=== PATIENT | female | born 1985 | race Caucasian/White ===

== ENCOUNTER 2017-01-02 10:29 | Inpatient (IN) | payer OTHER ==
[~2017-01-02] VITALS: Ht 172.7 cm; Wt 59.0 kg
--- NOTE | 2017-01-02 10:42 | NUR ---
31 YO FEMALE BIBA ON PEC. PER STRATEGIC INSIGHTS LEAD PT WAS "MISSING" FROM [place] AND WAS LOCATED TODAY IN [place]. PT ARRIVES ALERT AND AGITATED. PT STATING "I DONT WANT ANY F PILLS" "I WAS ON PAXIL AND IT MESSED ME UP" PT RAMBLING ON ABOUT VARIOUS TOPICS. PT DENIES SI/HI. DENIES ALCOHOL OR DRUG USE, STATES "I ONLY SMOKE MARIJUANA TO HELP CALM ME DOWN" PT REDIRECTABLE. AT BEDSIDE ON ARRIVAL. PT WANDED BY SECUIRTY AND CHANGED INTO HOSP SCRUBS. SITTER PRESENT.
--- NOTE | 2017-01-02 10:45 | ED PSYCHIATRIC COMPLAINT ---
History of Present Illness General Chief Complaint: Psychiatric Related Complaint Stated Complaint: BIBA FOR PSYCH EVAL Source: patient, family, EMS, police Exam Limitations: clinical condition Vital Signs & Intake/Output Vital Signs & Intake/Output Vital Signs Date Time Temp Pulse Resp B/P Pulse O2 O2 Flow FiO2 Ox Delivery Rate 01/02 1535 98.6 71 17 106/53 97 Room Air 01/02 1045 97.8 57 18 118/56 99 Room Air Allergies Coded Allergies: MDX - Amoxicillin (AMOXICILLIN) (HIVES 12/03/14) Reconcile Medications No Known Home Medications Triage Note: 31 YO FEMALE BIBA ON PEC. PER INSOLE RASPER PT WAS "MISSING" FROM [place] AND WAS LOCATED TODAY IN [place]. PT ARRIVES ALERT AND AGITATED. PT STATING "I DONT WANT ANY F PILLS" "I WAS ON PAXIL AND IT MESSED ME UP" PT RAMBLING ON ABOUT VARIOUS TOPICS. PT DENIES SI/HI. DENIES ALCOHOL OR DRUG USE, STATES "I ONLY SMOKE MARIJUANA TO HELP CALM ME DOWN" PT REDIRECTABLE. MD AT BEDSIDE ON ARRIVAL. PT WANDED BY SECUIRTY AND CHANGED INTO HOSP SCRUBS. SITTER PRESENT. Triage Nurses Notes Reviewed? yes : No Patient currently breastfeeds: No HPI: Patient brought in by EMS on a police paper. Per the police the patient had a psychotic break but then disappeared from her house in [place]. This occurred 3 days ago. Patient was found today at her [id number]'s house in [place] so the patient was brought in for evaluation. Patient is very tangential and verbally aggressive. Patient is unable to provide any history. Patient's [id number] states that the patient has been complaining her own for the past day and a half. Patient's family states that this is an acute change for the patient. Past History Travel History Traveled to [place] past 21 day No Medical History Any Pertinent Medical History? 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 No Review of Systems Review of Systems Constitutional: Reports: see HPI. EENTM: Reports: no symptoms. Respiratory: Reports: no symptoms. Cardiovascular: Reports: no symptoms. GI: Reports: no symptoms. Genitourinary: Reports: no symptoms. Musculoskeletal: Reports: no symptoms. Skin: Reports: no symptoms. Neurological/Psychological: Reports: see HPI. Hematologic/Endocrine: Reports: no symptoms. Immunologic/Allergic: Reports: no symptoms. All Other Systems: Reviewed and Negative Physical Exam Physical Exam General Appearance: well developed/nourished, alert, awake Head: atraumatic, normal appearance Eyes: Bilateral: PERRL, EOMI. Ears, Nose, Throat: normal pharynx, normal ENT inspection Neck: normal inspection, supple, full range of motion Respiratory: normal breath sounds, chest non-tender, no respiratory distress, lungs clear Cardiovascular: regular rate/rhythm, normal peripheral pulses Gastrointestinal: normal bowel sounds, soft, non-tender Extremities: normal range of motion Neurological/Psychiatric: no motor/sensory deficits, awake, agitated, alert Behavoir/Eye Contact/Speech: cooperative, normal speech Thoughts/Hallucinations: no apparent hallucination, tangental Skin: intact, normal color, warm/dry SAD PERSONS Done? CRISIS CONSULT OBTAINED Progress Differential Diagnosis: drug intoxication, drug overdose, drug withdrawal, electrolyte abnormality Plan of Care: Orders Procedure Date/time Status Admit to inpatient psych 01/02 1552 Active Continuous Observation Monitor 01/02 1044 Active URINE DRUGS OF ABUSE 01/02 1044 Complete URINALYSIS 01/02 1044 Complete HUMAN BETA HCG SCREEN 01/02 1044 Complete ETHANOL 01/02 1044 Complete COMPREHENSIVE METABOLIC PANEL 01/02 1044 Complete CBC WITHOUT DIFFERENTIAL 01/02 1044 Complete ED CRISIS PSYCH CONSULT 01/02 1044 Active Laboratory Tests 01/02/17 1115: Urine Opiates Screen < 100.00, Methadone Screen < 40, Barbiturate Screen < 60, Ur Phencyclidine Scrn < 6.00, Amphetamines Screen < 100, U Benzodiazepines Scrn < 85, Urine Cocaine Screen < 50, Urine Cannabis Screen 74.80 H, Urine Color YEL , Urine Clarity HAZY H, Urine pH 6.0, Ur Specific [place] >= 1.030, Urine Protein 30 H, Urine Ketones >=80, Urine Nitrite NEG, Urine Bilirubin NEG, Urine Urobilinogen 0.2, Ur Leukocyte Esterase NEG, Ur Microscopic SEDIMENT EXAMINED, Urine RBC 1-3, Urine WBC RARE, Ur Epithelial Cells MANY H, Urine Bacteria MANY H, Urine Mucus MANY H, Urine Hemoglobin NEG, Urine Glucose NEG 01/02/17 1112: CBC w Diff NO MAN DIFF REQ, RBC 5.58 H, MCV 87.4, MCH 29.0, RDW 14.2, MPV 9.4, Gran % 71.4, Lymphocytes % 22.4, Monocytes % 5.6, Eosinophils % 0.1, Basophils % 0.5, Absolute Granulocytes 7.8 H, Absolute Lymphocytes 2.5, Absolute Monocytes 0.6, Absolute Eosinophils 0, Absolute Basophils 0.1, PUBS MCHC 33.1 01/02/17 1111: Anion Gap 11, Estimated GFR > 60, BUN/Creatinine Ratio 20.0, Glucose 79, Calcium 10.5 H, Total Bilirubin 0.6, AST 19, ALT 33, Alkaline Phosphatase 75, Total Protein 7.8, Albumin 5.0, Globulin 2.8, Albumin/Globulin Ratio 1.8, Total Beta HCG NEGATIVE, Serum Alcohol < 10.0 Departure Departure Disposition: STILL A PATIENT Condition: Guarded Clinical Impression Primary Impression: Depression Referrals: PATIENT HAS NO PRIMARY CARE DR (PCP/Family) Departure Forms: Customer Survey General Discharge Information Prescriptions: Current Visit Scripts No Known Home Medications Psych Admission Note Psychiatric Admission: I have seen and evaluated FABIAN VENTURA. I have also reviewed all the pertinent lab results and diagnostic results. FABIAN VENTURA will be admitted to our inpatient Psychiatric unit for treatment and care.
--- NOTE | 2017-01-02 10:55 | NUR ---
HUSBANDS CONTACT INFO: EMELY [phone]
--- NOTE | 2017-01-02 11:09 | NUR ---
SECURITY WANDED PT CHANGE INTO SCRUBS 1 BELONGING BAG 1 VALUABLE BAG, GIVEN TO DIALLO MCCALL
--- NOTE | 2017-01-02 11:13 | NUR ---
BLOOD DRAWN AND SENT TO LAB. LAV,SST,BLUE
[2017-01-02 11:18] LABS: ABSOLUTE BASOPHIL COUNT 0.1 /CUMM (0.0-0.2); ABSOLUTE EOSINOPHIL COUNT 0 /CUMM (0.0-0.7); ABSOLUTE GRANULOCYTE CT 7.8 /CUMM (1.4-6.5); ABSOLUTE LYMPH COUNT 2.5 /CUMM (1.2-3.4); ABSOLUTE MONOCYTE COUNT 0.6 /CUMM (0.10-0.60); BASOPHIL % 0.5 % (0.0-2.0); EOSINOPHIL % 0.1 % (0-5); GRANULOCYTE % 71.4 % (42.2-75.2); HEMATOCRIT 48.8 % (37-47); MEAN CORPUSCULAR HGB CONC 33.1 G/DL (33.0-37.0); MEAN CORPUSCULAR VOLUME 87.4 FL (81.0-99.0); MEAN PLATELET VOLUME 9.4 FL (7.4-10.4); PLATELET COUNT 228 /CUMM (130-400); RBC DISTRIBUTION WIDTH 14.2 % (11.5-14.5); RED BLOOD CELL CT 5.58 /CUMM (4.20-5.40)
--- NOTE | 2017-01-02 11:22 | NUR ---
URINE SPECIMEN OBTAINED AND SENT TO LAB
--- NOTE | 2017-01-02 12:47 | NUR ---
PT'S CALLED FOR UPDATE. THIS RN TRANSFERRED CALL INTO CRISIS OFFICE.
--- NOTE | 2017-01-02 13:33 | NUR ---
PT MOVED FROM HUMMEL D TO ROOM 13
--- NOTE | 2017-01-02 14:55 | ED PSYCH CRISIS CONSULTATION ---
Crisis Consult Basic Assessment Date of Consult: 01/02/17 Responsible Person/Accompanied By: self Insurance Authorization: Insurance #1: Insurance name: SELF-PAY Phone number: Policy number: Group number: Authorization number: ED Provider: Patient's ED Provider: MARIA TERESA CURTIS,KT Vega Primary Care Physician: Patient's PCP: PATIENT HAS NO PRIMARY CARE DR PCP's Phone Number: Current Psychiatrist: none Chief Complaint: Psychiatric Related Complaint Patient's Quote: "Nothing here is real." Present Illness: Pt is a 31yo female who was brought in to the ED on a PEER after she went missing from her home early this morning. Pt had showed up at a friend's home at 5am this morning speaking nonsensical stating that she needs help packing all her things into the car so that she can give them away. The friend called pt's who had already contacted the police, but by the time police came to the home pt was gone. The police had to use GPS to track her down by phone. When they found pt she presented with labile mood swings and was noted to be rambling nonsensically about life and . Crisis eval was very limited as pt continued to present as labile (irritable, tearful, elated) and making statements that were not making any sense. "I love you. Nothing is real here. 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 I'm going to [place] because my sister needs my eyes." This clinician did speak with Pt's Ben Ramos . He explained that Pt's father began to have psychosis around the same age as pt . He was diagnosed as Schizoaffective Bipolar Type. He was Hospitalized at the [facility] several times, but his sx never improved. He 2 years ago of an unintentional drug over dose. Ben reports that over the past few weeks pt has started to process the loss of her father and it seem to have triggered a new onset of psychiatric sx. 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 Pt has take her christianity views to a new extreme as she barely ever sleeps and stay up all night reading the bible and talking about God and Kelvin. On at 7 am pt showed up at an old grad school friend house telling her she needed Kelvin. Additionally, pt has been smoking cigarettes non- stop with the purpose of killing her flesh so that she can go to [facility]. When her tries to help her see rationality and reminds her of the importance of being there for their 6yo daughter, pt will tell him that he is speaking of the devil. Pt was up all night last night and then left and showed up at her friend at 5am asking for help to pack her things into the car so that she could give them away and then left before the police arrived. Ben stated he tried to reach her by phone but she would not answer. He then text her telling her that he loves her and asking her to come home and she responded "Where's home?" He her the address and she never responded. However, as stated above the police found her through GPS. Pt has no prior mental health tx or hx. is aware the pt does smoke marijuana sometimes, but not around him so he is unsure how often. Pt's utox is positive for marijuana. Case reviewed with Dr. Block of Psychiatry and pt will be admitted to [facility]. Patient's Address: [address] [place] [address] Other Phone Number: Who Do You Live With? Family Family/Informants Interviewed: Allergies - Coded Allergies: MDX - Amoxicillin (AMOXICILLIN) (HIVES 12/03/14) Current Medications - No Known Home Medications Laboratory Results: Laboratory Tests 01/02/17 1115: Urine Opiates Screen < 100.00, Methadone Screen < 40, Barbiturate Screen < 60, Ur Phencyclidine Scrn < 6.00, Amphetamines Screen < 100, U Benzodiazepines Scrn < 85, Urine Cocaine Screen < 50, Urine Cannabis Screen 74.80 H, Urine Color YEL , Urine Clarity HAZY H, Urine pH 6.0, Ur Specific [place] >= 1.030, Urine Protein 30 H, Urine Ketones >=80, Urine Nitrite NEG, Urine Bilirubin NEG, Urine Urobilinogen 0.2, Ur Leukocyte Esterase NEG, Ur Microscopic SEDIMENT EXAMINED, Urine RBC 1-3, Urine WBC RARE, Ur Epithelial Cells MANY H, Urine Bacteria MANY H, Urine Mucus MANY H, Urine Hemoglobin NEG, Urine Glucose NEG 01/02/17 1112: CBC w Diff NO MAN DIFF REQ, RBC 5.58 H, MCV 87.4, MCH 29.0, RDW 14.2, MPV 9.4, Gran % 71.4, Lymphocytes % 22.4, Monocytes % 5.6, Eosinophils % 0.1, Basophils % 0.5, Absolute Granulocytes 7.8 H, Absolute Lymphocytes 2.5, Absolute Monocytes 0.6, Absolute Eosinophils 0, Absolute Basophils 0.1, PUBS MCHC 33.1 01/02/17 1111: Anion Gap 11, Estimated GFR > 60, BUN/Creatinine Ratio 20.0, Glucose 79, Calcium 10.5 H, Total Bilirubin 0.6, AST 19, ALT 33, Alkaline Phosphatase 75, Total Protein 7.8, Albumin 5.0, Globulin 2.8, Albumin/Globulin Ratio 1.8, Total Beta HCG NEGATIVE, Serum Alcohol < 10.0 Past History Past Medical History Neurological: NONE EENT: NONE Cardiovascular: NONE Respiratory: NONE Gastrointestinal: NONE Hepatic: NONE Renal: NONE Musculoskeletal: NONE Psychiatric: PTSD Endocrine: NONE Blood Disorders: NONE Cancer(s): NONE 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 Surgical History Surgical History: non-contributory Psychosocial History Strengths/Capabilities: Supportive family and anabaptism Physical Limitations (Interventions): none reported Psychiatric Treatment History Psych Treatment Psychiatric Treatment No Inpatient Treatment No Outpatient Treatment No Diagnosis by History: none Substance Use/Abuse History Drug Use/Abuse Substances Used/Abused Yes Substance Used/Abused Marijuana First Use unable to assess Last Used unable to assess How much used/taken unable to assess How often unable to assess For how long unable to assess Route of use unable to assess Substance Abuse Treatment Substance Abuse Treatment Past Substance Abuse [place] No Inpatient Treatment No Current Mental Status Mental Status Orientation: Confused Affect: Anxious, Angry, Broad, Depressed, Euphoric, Labile, Manic, Sad, Variable Speech: Evasive Neuro-vegetative: Concentration Poor, Energy Increased, Hyperactivity, Sleep Disturbance Appearance Appearance- Dress/Hygiene: well groomed, good eye contact Behaviors Thought Process: Disorganized, Flight of Ideas, Irrational, Loose Association Thought Content: Delusions, Paranoid, Catholic Memory: Impaired Insight: Poor SI/HI Risk Assessment Past Suicidal Ideation/Attempts No Current Suicidal Ideation/Att No Past Homicidal Ideation/Att: No Current Homicidal Ideation/Attempts No Degree of Intent: None Gravely Disabled: Lack of Insight, Poor Impulse Control, Poor Judgment Risk Factors: poor impulse control Lethality Ratin (mild) PTSD Checklist PTSD Done? pt unable to participate ED Management Sitter: Yes Restraints: No DSM5/PS Stressors/Medical Prob Diagnosis' (DSM 5, Stressors, Medical): F29 Unspecified Schizophrenia Spectrum and other psychotic Disorders, F12.20 Cannabis use d/o Current GAF: 15 Departure Disposition Psych Medical Clearance Date: 01/02/17 Medically Cleared at: 1400 Time Started: 1400 Time Ended: 1500 Psychiatrist Consulted: Mckayla CURTIS,Edward Date Disposition Established: 01/02/17 Time Disposition Established: 1500 Plan for Disposition - Modality: Inpatient Psychiatry Facility: [facility] Rationale for Disposition: safety and stabilization of sx Type of IP Admission: PEC Referrals PATIENT HAS NO PRIMARY CARE DR (PCP/Family)
--- NOTE | 2017-01-02 15:24 | NUR ---
CRISIS AT BEDSIDE
--- NOTE | 2017-01-02 15:35 | NUR ---
PT REQUESTED NICOTINE GUM, BUT WHEN THIS RN RETREIVED IT FROM PHARMACY AND BROUGHT IT TO PT SHE SAID "I DON'T WANT IT". GUM PLACED IN MED ROOM.
--- NOTE | 2017-01-02 15:44 | NUR ---
PT REFUSING DINNER AT THIS TIME.
--- NOTE | 2017-01-02 16:30 | NUR ---
PT GIVEN DINNER TRAY AND ENCOURAGED TO EAT. PT EATING AT THIS TIME.
--- NOTE | 2017-01-02 17:24 | IP CRISIS DIAG ASSESS PSYCH ---
Diagnostic Assessment Basic Assessment Insurance Authorization: Insurance #1: Insurance name: SELF-PAY Phone number: Policy number: [id number] Group number: Authorization number: [id number] Primary Care Physician: Patient's PCP: PATIENT HAS NO PRIMARY CARE DR PCP's Phone Number: Patient's Quote: "Nothing here is real." Present Illness: Pt is a 31yo female who was brought in to the ED on a PEER after she went missing from her home early this morning. Pt had showed up at a friend's home at 5am this morning speaking nonsensical stating that she needs help packing all her things into the car so that she can give them away. The friend called pt's who had already contacted the police, but by the time police came to the home pt was gone. The police had to use GPS to track her down by phone. When they found pt she presented with labile mood swings and was noted to be rambling nonsensically about life and . Crisis eval was very limited as pt continued to present as labile (irritable, tearful, elated) and making statements that were not making any sense. "I love you. Nothing is real here. 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 I'm going to [place] because my sister needs my eyes." This clinician did speak with Pt's Ben Ramos . He explained that Pt's father began to have psychosis around the same age as pt . He was diagnosed as Schizoaffective Bipolar Type. He was Hospitalized at the [facility] several times, but his sx never improved. He 2 years ago of an unintentional drug over dose. Ben reports that over the past few weeks pt has started to process the loss of her father and it seem to have triggered a new onset of psychiatric sx. 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 Pt has take her alevism views to a new extreme as she barely ever sleeps and stay up all night reading the bible and talking about God and Kelvin. On at 7 am pt showed up at an old grad school friend house telling her she needed Kelvin. Additionally, pt has been smoking cigarettes non- stop with the purpose of killing her flesh so that she can go to [facility]. When her tries to help her see rationality and reminds her of the importance of being there for their 6yo daughter, pt will tell him that he is speaking of the devil. Pt was up all night last night and then left and showed up at her friend at 5am asking for help to pack her things into the car so that she could give them away and then left before the police arrived. Ben stated he tried to reach her by phone but she would not answer. He then text her telling her that he loves her and asking her to come home and she responded "Where's home?" He her the address and she never responded. However, as stated above the police found her through GPS. Pt has no prior mental health tx or hx. is aware the pt does smoke marijuana sometimes, but not around him so he is unsure how often. Pt's utox is positive for marijuana. Case reviewed with Dr. Block of Psychiatry and pt will be admitted to [facility]PS. Patient's Address: [address] [place] [address] Other Phone Number: Who Do You Live With? Family Primary Language? Lao Family/Informants Interviewed: Allergies - Coded Allergies: MDX - Amoxicillin (AMOXICILLIN) (HIVES 12/03/14) Current Medications - No Known Home Medications Past History Past Surgical History Surgical History , hernia Repair Abuse/Trauma History Trauma History/Current Trauma: unable to assess Psychosocial History Strengths/Capabilities: Supportive family and protestant Physical Limitations (Interventions): none reported Psychiatric Treatment History Psych Treatment Psychiatric Treatment No Inpatient Treatment No Outpatient Treatment No Diagnosis by History: none Risk Factors: poor impulse control Substance Use/Abuse History Drug Use/Abuse minimum 12mo Hx Substances Used/Abused Yes Substance Used/Abused Marijuana First Use unable to assess Last Used unable to assess How much used/taken unable to assess How often unable to assess For how long unable to assess Route of use unable to assess Substance Abuse Treatment Substance Abuse Treatment Past Substance Abuse [place] No Inpatient Treatment No Current Mental Status Mental Status Orientation: Confused Affect: Anxious, Angry, Broad, Depressed, Euphoric, Labile, Manic, Sad, Variable Speech: Evasive Neuro-vegetative: Concentration Poor, Energy Increased, Hyperactivity, Sleep Disturbance Appearance Appearance- Dress/Hygiene: well groomed, good eye contact Behaviors Thought Process: Disorganized, Flight of Ideas, Irrational, Loose Association Thought Content: Delusions, Paranoid, Adventist Memory: Impaired Insight: Poor SI/HI Risk Assessment - Minimum 6mo History- Past Suicidal Ideation/Attempts No Current Suicidal Ideation/Att No Past Homicidal Ideation/Att: No Current Homicidal Ideation/Attempts No Degree of Intent: None Gravely Disabled: Lack of Insight, Poor Impulse Control, Poor Judgment Risk Factors: poor impulse control Lethality Ratin (mild) Needs/Init TX Plan/Goals: safety and stabilization of sx, individual group and family therapy, med eval AUDIT-C Questionnaire: AUDIT-C Questionnaire: Response Value ETOH use in the past year Never 0 # drinks typical/day Doesn't Drink 0 6 or > drinks per occasion Never 0 Total 0 DSM5/PS Stressors/Medical Prob Diagnosis' (DSM 5, Stressors, Medical): F29 Unspecified Schizophrenia Spectrum and other psychotic Disorders, F12.20 Cannabis use d/o Current GAF: 15
--- NOTE | 2017-01-02 19:29 | NUR ---
PT AMBULATORY TO RESTROOM, STEADY GAIT. SITTER AT DOOR FOR SAFETY
[2017-01-02 20:23] VITALS: BP 122/72
--- NOTE | 2017-01-02 22:00 | Admission Certification ---
Admission Certification Certification Statement - As attending physician, I certify that at the time of - admission, based on clinical presentation, severity of - symptoms, need for further diagnostic testing and - therapeutic interventions, and risk of adverse outcomes - without in-hospital treatment, in my clinical assessment, - this patient requires an acute hospital stay for a minimum - of two nights or longer. I have also considered psychsocial - factors such as support system, advanced age, financial - issues, cognitive issues, and failed out-patient treatments, - past re-admission history, safety of patient, and lack of - compliance as applicable. Specific rationale supporting this admission is: Psychosis, schizophrenia.
--- NOTE | 2017-01-02 22:02 | History & Physical ---
General Information and HPI MD Statement: I have seen and personally examined FABIAN VENTURA and documented this H&P. The patient is a 31 year old F who presented with a patient stated chief complaint of [psychotic episode]. Source of Information: patient Exam Limitations: no limitations History of Present Illness: 31 yo F with no significant medical problem is admitted to Inpatient Psychiatry for what appears to be a new onset of psychosis. Please refer to Psych H and P for full details. Patient denies any medical problems and is not on any medications on a daily basis. She is a current everyday smoker and also uses marijuana. She denies symptoms of chest pain, dyspnea, cough, fever/chills, GI or symptoms. 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 Psychosocial History Where do you live? Home Who Do You Live With? spouse Services at Home: None Primary Language: Armenian Smoking Status: Current Everyday Smoker ETOH Use: occasional use Illicit Drug Use: marijuana Functional Ability ADLs Independent: dressing, eating, toileting, bathing. Ambulation: independent IADLs Independent: housework, food prep, telephone, transportation. Review of Systems Review of Systems Constitutional: Denies: chills, fever, malaise, weakness. EENTM: Reports: no symptoms. Cardiovascular: Denies: chest pain, orthopena, palpitations, syncope. Respiratory: Denies: cough, short of breath, sputum production, wheezing. GI: Denies: abdominal pain, constipation, nausea, vomiting. Genitourinary: Denies: discharge, frequency, nocturia. Musculoskeletal: Reports: no symptoms. Neurological/Psychological: Reports: see HPI. All Other Systems: Reviewed and Negative Exam & Diagnostic Data Last 24 Hrs of Vital Signs/I&O Vital Signs Date Time Temp Pulse Resp B/P Pulse O2 O2 Flow FiO2 Ox Delivery Rate 01/02 2023 98.7 77 122/72 01/02 1939 97.8 69 17 118/68 98 Room Air 01/02 1939 98.2 72 16 114/76 94 Room Air 01/02 1535 98.6 71 17 106/53 97 Room Air 01/02 1045 97.8 57 18 118/56 99 Room Air Intake & Output 01/02 1600 01/02 0800 01/02 0000 Intake Total Output Total Balance Patient 135 lb Weight Physical Exam General Appearance Alert, Oriented X3, Cooperative, No Acute Distress Skin No Rashes, No Significant Lesion HEENT Atraumatic, PERRLA, EOMI, Mucous Membr. moist/pink Neck Supple Cardiovascular Regular Rate, Normal S1, Normal S2, No Murmurs Lungs Clear to Auscultation, Normal Air Movement Abdomen Normal Bowel Sounds, Soft, No Tenderness Neurological Exam Findings: Normal Gait, Normal Speech, Strength at 5/5 X4 Ext, Cranial Nerves 3-12 NL, Reflexes 2+ Cranial Nerves II through XII: Grossly intact. Extremities No Edema, Normal Pulses, No Tenderness/Swelling Vascular Normal Pulses, Pulses Symmetrical Last 24 Hrs of Labs/Arnulfo: Laboratory Tests 01/02/17 1115: Urine Opiates Screen < 100.00, Methadone Screen < 40, Barbiturate Screen < 60, Ur Phencyclidine Scrn < 6.00, Amphetamines Screen < 100, U Benzodiazepines Scrn < 85, Urine Cocaine Screen < 50, Urine Cannabis Screen 74.80 H, Urine Color YEL , Urine Clarity HAZY H, Urine pH 6.0, Ur Specific [place] >= 1.030, Urine Protein 30 H, Urine Ketones >=80, Urine Nitrite NEG, Urine Bilirubin NEG, Urine Urobilinogen 0.2, Ur Leukocyte Esterase NEG, Ur Microscopic SEDIMENT EXAMINED, Urine RBC 1-3, Urine WBC RARE, Ur Epithelial Cells MANY H, Urine Bacteria MANY H, Urine Mucus MANY H, Urine Hemoglobin NEG, Urine Glucose NEG 01/02/17 1112: CBC w Diff NO MAN DIFF REQ, RBC 5.58 H, MCV 87.4, MCH 29.0, RDW 14.2, MPV 9.4, Gran % 71.4, Lymphocytes % 22.4, Monocytes % 5.6, Eosinophils % 0.1, Basophils % 0.5, Absolute Granulocytes 7.8 H, Absolute Lymphocytes 2.5, Absolute Monocytes 0.6, Absolute Eosinophils 0, Absolute Basophils 0.1, PUBS MCHC 33.1 01/02/17 1111: Anion Gap 11, Estimated GFR > 60, BUN/Creatinine Ratio 20.0, Glucose 79, Calcium 10.5 H, Total Bilirubin 0.6, AST 19, ALT 33, Alkaline Phosphatase 75, Total Protein 7.8, Albumin 5.0, Globulin 2.8, Albumin/Globulin Ratio 1.8, Vitamin B12 Pending, Folate Pending, TSH Pending, Free T4 1.53, Thyroxine (T4) 10.4, Total Beta HCG NEGATIVE, Serum Alcohol < 10.0 Diagnostic Data EKG Results -- CXR Results -- Assessment/Plan Assessment: 31 yo F with no significant medical problem is admitted for new onset psychosis and possible schizophrenia. Continue management per Psych team. She has a leukocytosis and mild elevation in calcium levels (10.5), likely dehydration. She is hemeconcentrated. Encourage PO hydration. Nicotine patch, smoking cessation counseling. DVT ppx - low risk, early ambulation. As Ranked By This Provider Problem List: 1. Psychosis 2. Depression Miscellaneous Miscellaneous Documentation Attending Case Discussed With: IMMANUEL CURTIS,PRASHANTH Bell Primary Care Physician: PATIENT HAS NO PRIMARY CARE DR Patient sees these Specialists -- Level of Patient Care: DEONDRE Treviño MD Review Statement Attending Statement Attending MD Statement: examined this patient, discuss w/resident/PA/MANAGER BUSINESS CONTINUITY
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
--- NOTE | 2017-01-03 04:18 | NUR ---
SLEPT ON AND OFF THROUGH OUT NIGHT. HAD BEEN MEDICATED AT WITH ZYDIS TYLENOL.
[2017-01-03 08:13] VITALS: BP 121/74
[2017-01-03 12:12] VITALS: BP 127/58
--- NOTE | 2017-01-03 14:17 | NUR ---
PT APPEARS CONFUSED AT TIMES. SHE WAS FOUND IN ANOTHER PTS ROOM AND WHEN LETTING VISITORS OUT SHE WAS HUDDLING BY THE DOOR. PT WAS TEARFUL AND STATED THE ONLY PERSON SHE TRUSTED WAS HER MOM.PT GIVEN ZYPREXA 5MG PO PRN. WILL MONITOR EFFECT
--- NOTE | 2017-01-03 14:29 | NUR ---
PT STATED HER GOAL TODAY WAS TO "HAVE A CONSTITUTION PARTY" HER THOUGHTS ARE DISORGANIZED..AT TIMES SHE IS CONFUSED. SHE APPEARS DEPRESSED AND WAS TEARFUL WHEN HER MOM VISITED. SHE IS TAKING MEDS WITHOUT A PROBLEM AND STATED THE MEDS MADE HER FEEL A LITTLE SLEEPY. SHE DENIED ANY THOUGHTS OF SUICIDE OR SELF HARM
--- NOTE | 2017-01-03 15:16 | CPS MD/APRN INITIAL ASSE PSYCH ---
Psychiatric Admission Thumb Sewer's Note Reviewed: Yes Patient Seen and Examined: Yes Identifying Information: This is the 1st [facility] admission for a 31-year-old mother of a 6-year- old daughter currently living with her spouse and child in [facility], and to my knowledge not employed outside the home at this time. Her mother resides in [facility]; father about 2 years ago. Chief Complaint: "Nothing here is real." Reaction to Hospitalization: highly ambivalent and fearful at times but becoming less uncomfortable with active reassurance of staff History of Present Illness Onset of Illness: according to history we have at this time patient "went missing" from her home early in the morning of 01/02/2017; became very concerned and contacted the police who were able to utilize a GPS tracker (?on her cellphone) to locate her. They found patient very confused, incoherent, not making any sense and brought her into the E.D. on a PEER. In the E.D., patient verbally rambled, "I don't want any f*ckin' pills...I was on Paxil and it messed me up...I only smoke Marijuana to help me calm down; she asked for nicotine gum but when it was provided, refused to use it. Circumstances Leading to Admission: patient's apparently abrupt and unexplained disappearance/absence from her family home early on the morning of admission and the confusional state in which police found her at the time she was located Problem(s) Justifying Need for Admission: grave disability contributed to by confusion and apparent gross cognitive disorganization/disorder with significant risk to her safety (had run off and only been located by the police after they utilized GPS tracking Other HPI: patient's told chlorinator operator he thought his was during the past few weeks "only just beginning to come to terms with her father's two years ago" Past Psychiatric History Past Diagnosis(es)- if any: none known at this time Past Precipitating Factors- if any: no known history at this time - Include inpatient and outpatient treatment Treatment History: not currently aware of any prior treatment, either inpatient or outpatient History of Suicide Attempts or Gestures unknown Substance Abuse History: patient was intoxicated with cannabis at time of presentation to the E.D.; no other known drug or alcohol history Allergies: Coded Allergies: amoxicillin (HIVES 01/03/17) Home Med List: none - Include any medical condition(s) that may - impact the patient's recovery/remission Past History Medical History Neurological: NONE EENT: NONE Cardiovascular: NONE Respiratory: NONE Gastrointestinal: NONE Hepatic: NONE Renal: NONE Musculoskeletal: NONE Psychiatric: PTSD ((not clear as to details)) Endocrine: NONE Blood Disorders: NONE Cancer(s): NONE 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 - #1 Recognizing dangerous situations. - #2 Coping Skills. - #3 Basic information about quitting. Status of Tobacco Cessation Counseling: N/A B/C NO TOB USE Cessation Med Status: No Tobacco Use last 30d Alcohol Screening - ETOH screen POS if BAL >=80 or Audit-C>= M4/F3 Audit-C Score from Diag Assess: 0 Blood Alcohol Level: Laboratory Tests 01/02 1111 Toxicology Serum Alcohol (<10 MG/DL) < 10.0 Alcohol Use Screening Results: Neg per Audit C &/or BAL - If ETOH counseling indicated - the following topics are required. - #1 Express concern about the patient's - drinking at unhealthy levels, include informing - of national norms for moderate drinking: - men <= 14 drinks/week, max 4 drinks/occasion - women <= 7 drinks/week, max 3 drinks/occasion - #2 Providing feedback, including linking alcohol to - negative physical effects (liver injury, hypertension) - negative emotional effects (relationship problems and - depression) - negative occupational consequences (reduced work - performance) - #3 Advising the patient to abstain from alcohol or - to drink below national norms for moderate drinking - (as listed above). Status of ETOH Use Counseling: N/A B/C NO ETOH Use Metabolic Screening - Screen if on a Neuroleptic Medication - Metabolic screening should include: - Blood Pressure, BMI, Glucose or Hgb A1c, & a - Lipid profile from within the past 365 days. Metabolic Screening ([X]) Not Applicable, patient not on a neuroleptic. OR () Patient on a neuroleptic(s) . Enter below results for Glucose or Hemoglobin A1C, and lipid panel if obtained during the last 365 days. BMI: 19.700 Blood Pressure: 129/74 Laboratory Results (If applicable): Exam and Plan Mental Status Examination Ambulation Status: without assistance but a little unsteady on her feet, possibly contributed to by PRN medications to help clear her cognitive disorganization/reduce her fear Appearance: preoccupied, apprehensive if not fearful, a little suspicious Attitude towards examiner: ambivalent and almost left the room once but came back to her chair and spoke with me for a while Psychomotor activity: somewhat fidgety, mildly increased, uncomfortable appearing (but denied restlessness) Behavior: apprehensive, questioning, confused but trying to piece together the recent past Quality of speech: soft, hesitant (?some thought blocking), little productivity or spontaneity Affect: constricted, tense, somewhat fearful/unsure Mood: anxious but denied being depressed Suicidal Ideation: denied Homicidal Ideation: denied Hallucinations: denied auditory or visual type Paranoid/Delusional Material: seemed somewhat paranoid but more confused than frankly/clearly delusional, no fixed delusions were elicited Difficulties with thought organization: very disorganized, scattered, disjointed Insight: absent Judgment: poor in recent past, possibly improving since her admission, becoming a little more interactive and communicative with staff, allowing them to reassure her to some degree, trusting them more, becoming less fearful Orientation: difficult to assess; may be confused as to place and reason for her being here Cognition: disorganized, unable to concentrate or follow a thought, tangential to loose Memory Function: difficult to assess but does not appear to have any clear picture of what she was about when she went missing from her home immediately HEAD OF PRECISION TARGETING Estimate of intellectual functioning: average Assets/Strengths Patient Identified Assets/Strengths: --close to her family --involved in her amish group/community Impression/Plan Impression and Plan: Patient appears to be experiencing a sort of acute psychotic episode which is more difficult to diagnose given current report of no prior psych history ( though her father is said to have had an affective psychotic disorder manifesting itself at about her current age. We will treat psychotic symptoms and try to obtain more background information as soon as possible, from , mother and possibly other relatives and friends (such as those from her amish; perhaps she has a very close friend from her quaker). - Include all active medical diagnosis that require tx DSM 5 Diagnosis(es): Unspecified (acute) Psychosis R/O Bipolar spectrum disorder R/O toxic/metabolic contribution to psychosis R/O contribution of cannabis abuse to psychosis - Initial Tx Plan for Active Psych & Medical Conditions Treatment Plan: Initially, we are treating patient with PRN doses of Zyprexa while titrating up on regular dose of same. We will attempt to bring in patient's spouse and possibly mother and others for a preliminary family meeting and to obtain more relevant history given patient's very limited ability to provide this at the present time. Appropriate aftercare arrangements will be developed after the nature of patient's currently disorganized/psychotic mental state are more clear, and she has begun to consistently respond to treatment, become more verbal. - Factors that would help patient function - in a less restrictive setting. Factors: --rapid clearing of patient's current cognitive disorganization/thought disorder --prompt input from patient's spouse, mother and possibly other relatives, close friends --patient's continuing cooperation with treatment, including acceptance of appropriate medication
[2017-01-03 15:54] VITALS: BP 117/69
[2017-01-03 19:57] VITALS: BP 129/74
--- NOTE | 2017-01-03 21:42 | NUR ---
Pt is mood is stable still disorganized, Pt is compliant and cooperative with the staff, no behavioral isssues noted during the day. Pt vital signs are stable appetite is good. Will continue to monitor the pt overnight.
--- NOTE | 2017-01-04 03:38 | NUR ---
SLEPT ON AND OFF THROUGH OUT SHIFT MEDICATED WITH ZYPREXA PRN.
[2017-01-04 07:43] VITALS: BP 135/75
--- NOTE | 2017-01-04 11:24 | NUR ---
PT HAS ABNORMAL UA NOTED BY HOD. SHE DENIES ANY S/S AT THIS TIME AND IS AFEBRILE
[2017-01-04 12:11] VITALS: BP 127/76
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
--- NOTE | 2017-01-04 13:25 | CP SOUTH PROGRESS NOTE PSYCH ---
Psych (Inpt) Progress Note Progress Note Include the following elements, when applicable: Involvement in the active treatment of the patient with behavioral observations of the patient and the patient's response to the treatment. Review of the ongoing treatment process in the context of the treatment plan. Indication of how multi-disciplinary staff members are carrying out the treatment plan. Plans for future interventions and recommendations for revision of the treatment plan. Liaison with other physicians/providers. Progress Note: [I discussed this patient's progress to date, current mental status, treatment process in the context of the treatment plan, and discharge planning with staff/ team in the daily morning inpatient team meeting. I also met with the patient myself in individual session.] S: "I feel more free than ever!" O: Current Medications Sig/Quinn Start time Last Medication Dose Route Stop Time Status Admin Acetaminophen 1,000 MG Q4P PRN 01/02 2245 AC 01/02 PO 2317 Nicotine 2 MG Q2P PRN 01/02 2230 AC 01/02 PO 2317 Olanzapine 10 MG 01/03 AC 01/03 PO 2233 Olanzapine 10 MG 01/03 2000 DC PO Olanzapine 5 MG Q4H PRN 01/03 1945 AC 01/04 PO 0303 Olanzapine 5 MG .STK-MED ONE 01/03 1409 DC PO 01/03 1410 Olanzapine 5 MG Q2P PRN 01/02 2230 DC 01/03 PO 1413 Vital Signs Date Time Temp Pulse Resp B/P Pulse O2 O2 Flow FiO2 Ox Delivery Rate 01/04 1211 68 127/76 01/04 0743 98.2 70 135/75 01/03 1957 98.5 64 129/74 01/03 1554 66 117/69 A: Chart, progress notes, VS, labs, and medication list were reviewed. Patient is a 31-year old female with an unclear psychiatric history and family history of schizoaffective disorder, bipolar type in her father who is now . Per chart review, the patient allegedly "went missing" from her home early in the morning of 01/02/17. Police were then contacted by the patient's who were able to track the patient. Patient was found confused and nonsensical; she was then sent to ED on a PEER. Utox (+) only for cannabis. BAL was negative. Met with patient for the first time today on CPS. Interviewed patient in her room, where she was intitially found napping in bed. Patient was responsive to voice and rolled over to speak to me. She presented disorganized, volume of speech and mood were labile. She appeared very animated. Initially spoke very loudly which then normalized. Eye contact was intermittent. Thought process appeared distracted. She denied auditory and visual hallucinations. There was no overt evidence of internal stimulation or thought blocking. Thought content was bizarre and nonsensical. She occasionally had clear moments. She denied prior suicide attempts, and reported this was not her first inpatient psychiatric hospitalization. She reported in the past she had been inpatient at "[facility] " in [place], [place] in "2006" because "I was a drug addict." Patient did not elaborate on history of substance abuse. She denied recent use of other illicit substances other than for cannabis. Today, she denied passive and active suicidal ideation, plans and intent. She denied homicidal ideation. She reported her sleep and appetite were good. She reported attending to ADLs and attending 2 milieu groups today. Patient was difficult to extract a psychiatric history from. Frequently she became distracted and spoke off topic. Required frequent redirection and prompts to follow in a conversation. Patient gradually ended interview and rolled over to resume resting in bed. Patient was agreeable to increasing Zyprexa to from 10mg to 15mg QHS for mood stabilization and psychosis. Attempted to educate patient on alternative medications such as [place] and Tegretol for mood stabilization given significant mood lability. Patient did not engage in this conversation, or allow this insurance underwriter to provide medication education on these mood stabilizers. Will continue to address trials of mood stabilizers with patient over hospital course. P: 1. continue monitoring patient on unit for safety, mood and psychosis. 2. Increase Zyprexa from 10mg QHS to 15mg QHS for mood stabilization and psychosis/ 3. Family meeting with scheduled for tomorrow. 4. Obtain MARTIN for [facility] if patient agreeable to signing to gain a psychiatric history on pt. 4. Dispo planning per primary team.
--- NOTE | 2017-01-04 14:16 | NUR ---
PT INTERACTS WITH STAFF AND PEERS, IS PRESENT IN THE [place] AND WAS PRESENT AT PLANNING MEETING. SHE SAID HER GOAL WAS TO "FOCUS" BUT WHEN STAFF ASKED HER TO ELABORATE SHE WAS CONFUSED AND DISORGANIZED. OBSERVABLE IMPROVEMENT, IN TERMS OF FEELING LOST AND NOT KNOWING WHERE SHE IS. HOWEVER, KEEPS ASKING WHERE HER MOTHER IS AND IF SHE IS COMING SOON. STILL UNABLE TO TOLERATE THE GROUP PROCESS AND LEAVES AFTER A SHORT AMOUNT OF TIME.
--- NOTE | 2017-01-04 14:26 | NUR ---
PT DENIES SI AT THIS TIME.
[2017-01-04 15:54] VITALS: BP 129/68
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
[2017-01-04 19:44] VITALS: BP 130/64
--- NOTE | 2017-01-04 22:33 | NUR ---
Patient observed walking out of B8 approximately 2200. Security was called and asked how long the patient was in the room. Security reviewed the tapes and stated it was approximately 45 min. Patient was asked what she was doing, she reported "laying in bed with her bear". When asked what she meant she, she was evasive and started counting. When the occupant of B8-1 BG was asked about what happened he stated Jessie was standing in corner, nothing else. When confronted again, BG stated that she was in room when he arrived back in the room. BG stated that she was in the corner, than approached his bed where they spoke for "a bit". BG than stated that Jessie climbed into bed with him. BG denies any sexual or inappropriate touching. BG stated that there was approximatel 10-15 min of laying in bed before he told Jessie that room checks were going to be done, and Jessie left room.
[2017-01-05 07:54] VITALS: BP 136/70
--- NOTE | 2017-01-05 12:06 | SOCIAL WORKER PROG NOTE PSYCH ---
Social Work Progress Note Progress Note Patient had family meeting today with this director underwriter sales, Laxmi Bermudez APRN, patients Ben and patients mother Rebekah. Patient presented anxious, labile, irritable, tearful and elated throughout most of the meeting. Patients thoughts were disorganized, she was tangential and nonsensical at times. Patient had a difficult time organizing her thoughts appropriately and expressed a great amount of anger towards her mother and during the meeting when not prompted. Patient mentioned about wanting to go to farm when she discharges the hospital and briefly mentioned from her although changed conversation shortly after very casually and nonchalantly. Patients family did express that there is a long hx of family issues that have been unresolved in patients family and patient recently has been trying to work on her own issues which may have contributed to this current episode. Patients and mother appear to be positive supports for patient and did report that patient has a long hx of mental health/ substance abuse but it has been mostly controlled over the past few years. Laxmi Light APRN discussed medication adjustments since patient was admitted and offered the option of starting a mood stabilizer in addition to the current anti psychotic she is on. Patient reported that she had been on [place] in the past (2005) and refuses to be on any mood stabilizer that require routine blood work monitoring.
[2017-01-05 12:47] VITALS: BP 119/61
--- NOTE | 2017-01-05 14:40 | NUR ---
PT VISIBLE IN THE MILIEU TODAY. HER GOAL WAS TO USE SUPPORT WHEN NEEDED. SHE HAS BEEN GOING TO GROUPS TODAY, AND INTERACTING WITH HER PEERS. PT HAD A FAMILY MEETING TODAY, WHICH WAS ON THE BRIEF SIDE. PT IS DISORGANIZED AT TIMES, BUT ORIENTED X3. SHE HAS BEEN COOPERATIVE WITH STAFF DIRECTION, AND DENIES THOUGHTS TO HURT HERSELF WHEN ASKED.
--- NOTE | 2017-01-05 14:56 | CP SOUTH PROGRESS NOTE PSYCH ---
Psych (Inpt) Progress Note Progress Note Include the following elements, when applicable: Involvement in the active treatment of the patient with behavioral observations of the patient and the patient's response to the treatment. Review of the ongoing treatment process in the context of the treatment plan. Indication of how multi-disciplinary staff members are carrying out the treatment plan. Plans for future interventions and recommendations for revision of the treatment plan. Liaison with other physicians/providers. Progress Note: [I discussed this patient's progress to date, current mental status, treatment process in the context of the treatment plan, and discharge planning with staff/ team in the daily morning inpatient team meeting. I also met with the patient myself in individual session.] S: "I want to go to a farm when I leave here." O: Current Medications Sig/Quinn Start time Last Medication Dose Route Stop Time Status Admin Acetaminophen 1,000 MG Q4P PRN 01/02 2245 AC 01/02 PO 2317 Nicotine 2 MG Q2P PRN 01/02 2230 AC 01/02 PO 2317 Olanzapine 10 MG 0800,01/06 0800 UNVr PO Olanzapine 15 MG 01/04 2200 AC 01/04 PO 01/05 2201 2217 Olanzapine 5 MG Q8P PRN 01/04 1400 AC 01/05 PO 1014 Vital Signs Date Time Temp Pulse Resp B/P Pulse O2 O2 Flow FiO2 Ox Delivery Rate 01/05 1247 64 119/61 01/05 0754 97.6 68 136/70 01/04 1944 98.3 60 130/64 01/04 1554 62 129/68 A: Chart, progress notes, labs, VS, and medication list were reviewed. Discussed patient's progress with nursing staff today who reported the patient was found laying in the bed of a male patient, next to this patient, last evening, upon wandering into his room. Patient was interviewed by myself and Janee Jenkins, [facility] registered nursing professor this morning. The patient denied any inappropriate/sexual contact between her and this male patient. She admitted to taking belongings from this room, which she returned, and were returned to the patient. The patient was placed on 1:1 ATC following incident, which will remain in place. A family meeting was held this morning with the patient, her mother (Rebekah), her (Ben), Jael Schuster LCSW, and this mortgage underwriter. The patient presented with extreme mood lability, tearful, demanding, argumentative, with an irritable edge. Speech was hyperverbal, and pressured at times. Thought process was disorganized and occasionally nonsensical. The patient frequently derailed from conversation and had difficulty following redirection and participating appropriately in conversation. She was accusatory towards her and mother at times. At one point, she expressed wanting to temporarily separate from her post-discharge without providing reasons. Rebekah and Ben acknowledged significant family dysfunction during the patient's childhood and early adulthood. They both felt that the patient has unresolved traumas that possibly influenced present manic/psychotic episode. Per Rebekah, the patient's father had a history of schizophrenia and bipolar disorder and had been managed on [place]. It was unclear to Rebekah if [place] was effective as the patient's father simultaneously abused multiple substances. Patient also reported a previous trial on [place] in 2005, and stopped medication due to excessive dry mouth and "other" side effects she would not elaborate on. Medication education was attempted on Tegretol and Depakote, however the patient stopped this mortgage underwriter upon hearing that these medications also required routine blood monitoring. Patient refused trials of any medication requiring routine blood monitoring. Today, the patient denied passive and active suicidal ideation, plans and intent. She denied homicidal ideation, auditory and visual hallucinations. There was no evidence of thought blocking or overt internal stimulation. Thought process remained disorganized, tangential; ? paranoia towards and mother. Thought content was nonsensical at times. There was no overt evidence of delusional thoughts. Patient reported tolerating medications well and denied untoward medication effects. There was no evidence of movement disorder or cogwheeling. She was agreeable to increase Zyprexa to 20mg daily. Will adjust daily doses to 10mg BID , as patient noted with significant mood lability during today. Will continue to monitor, and attempt to reeducate patient on the benefits of adding a mood stabilizer (as well as potential risks/se) as her thought process begins to clear. P: 1. Continue monitoring patient on unit for safety, mood, and psychosis. 2. Continue 1:1 ATC for safety to self/others/impulsive behaviors. 3. Increase Zyprexa to 10mg BID tomorrow. Continue prn Zyprexa fpr psychosis/ mood lability. 4. Dispo planning per primary team.
[2017-01-05 15:53] VITALS: BP 133/57
[2017-01-05 19:19] VITALS: BP 115/56
--- NOTE | 2017-01-06 05:57 | NUR ---
PT REMAINS ON 1:1. SHE SLEPT IN INTERVALS DURING THE NIGHT. PT UP EARLY AT 0530.
[2017-01-06 07:42] VITALS: BP 122/69
[2017-01-06 12:44] VITALS: BP 126/89
--- NOTE | 2017-01-06 16:49 | CP SOUTH PROGRESS NOTE PSYCH ---
Psych (Inpt) Progress Note Progress Note Include the following elements, when applicable: Involvement in the active treatment of the patient with behavioral observations of the patient and the patient's response to the treatment. Review of the ongoing treatment process in the context of the treatment plan. Indication of how multi-disciplinary staff members are carrying out the treatment plan. Plans for future interventions and recommendations for revision of the treatment plan. Liaison with other physicians/providers. Progress Note: [I discussed this patient's progress to date, current mental status, treatment process in the context of the treatment plan, and discharge planning with staff/ team in the daily morning inpatient team meeting. I also met with the patient myself in individual session.] S: "I feel like I'm to my mom." O: Current Medications Sig/Quinn Start time Last Medication Dose Route Stop Time Status Admin Acetaminophen 1,000 MG Q4P PRN 01/02 2245 AC 01/02 PO 2317 Nicotine 2 MG Q2P PRN 01/02 2230 AC 01/02 PO 2317 Olanzapine 10 MG 0800,01/06 0800 AC 01/06 PO 0816 Olanzapine 5 MG ONE TIME ONE 01/05 1715 DC 01/05 PO 01/05 1716 1711 Olanzapine 15 MG 0 01/04 2200 DC 01/05 PO 01/05 2201 2159 Olanzapine 5 MG Q8P PRN 01/04 1400 AC 01/06 PO 1121 Vital Signs Date Time Temp Pulse Resp B/P Pulse O2 O2 Flow FiO2 Ox Delivery Rate 01/06 1244 63 126/89 01/06 0742 97.2 81 122/69 01/05 1919 97.9 71 115/56 A: Chart, progress notes, VS, labs and medication list were reviewed. Standing Zyprexa was increased today to a total daily dose of 20mg (10mg BID) for psychosis/mood stabilization. Initially, I met with patient individually during visiting hours. She presented A&Ox4. Thought process was more organized than in previous encounters. Thought content was mostly appropriate. She expressed endorsing a lot of anger towards her and continued to express wanting to temporarily separate from him. She reported that some time ago they planned a divorce, but she did not go through with it due to her daughter. She reported marrying him only after becoming with their daughter. She reported regret for not him. When asked why she remains focused on wanting to separate from him, patient described as being chronically stressed and having poor coping skills. She reports "he flips out sometimes, really badly." She denied that he was ever physically abusive toward her or their daughter. Patient then began comparing her 's character traits to those of her mothers. She stated that she felt like she was to her mother. She became very focused on the internal family dynamics and again expressed how their dysfunction has negatively influenced her mental health, but did not elaborate further on this. She shared having many resentments towards both her mother and and feels all they care about is money. She then asked this newswriter if her [id number] (Kirk) who was visiting could be part of session, as she wanted him to comment of her dysfunctional family dynamics including her and mom. Kirk sat in and supported much of the above reports, however also shared that her and mother are very concerned about her. Kirk asked where the patient would be discharging to. I discussed the option of IOP treatment. The patient quickly interjected and refused IOP, stating she had trialed this in the past and program was ineffective. Encouraged patient to consider this as an option and to discuss further again tomorrow with primary treatment team. Patient was agreeable. Patient reported tolerating medications well and denied untoward medication effects. She again refused trials of [place], Depakote, and Tegretol. She stated she does not want to be on any medication requiring routine blood work. She was agreeable to continuing Zyprexa. Patient slowly improving. Thought process much more organized. Mood stability also slowly improving. Recommend increasing Zyprexa tomorrow if patient agreeable. Increase would be > than recommended daily dose. P: 1. Continue monitoring patient on unit for safety, mood and psychosis. 2. Continue Zyprexa 10mg BID for mood stabilization/psychosis. Recommend increasing Zyprexa tomorrow if patient agreeable. 3. Will continue 1:1 sitter ATC for recent impulsive behaviors. Will reassess need for sitter during the day tomorrow. 4. Dispo planning per primary team.
--- NOTE | 2017-01-06 17:17 | SOCIAL WORKER TX PLAN PSYCH ---
Treatment Plan - Please Document: - Evidence that there is ongoing collaboration between - the patient and the interdisciplinary team, - including the patient's active participation and - responsibility for engaging in the treatment regimen, - and that the treatment plan is individualized and - relevant to the patient's conditions. - Treatment plan should reflect documentation indicating - that all active therapeutic efforts are included. Strengths/Capabilities: Supportive family and judaism, friend - Chapis Physical Limitations (Interventions): none reported Patient Identified Trmt Goals: "I need to find peace." Discharge Plan: IOP Problem/Goals #1 Problem #1: psychosis Goal (Short Term): Lower level of psychic energy and return to normal activity levels. Increase good judgment, stable mood, and goal directed behavior. Reduce agitation, impulsivity, and pressured speech Increase sensitivity to the consequences of behavior and having more realistic expectations. Explore underlying feelings of guilt, fears of rejection, low self esteem, dependency, and abandonment. Accomplish controlled behavior, moderated mood, and thought process through psychotherapy and medication. Goal (Plumbing Engineer): Monitor taking of psychotropic medications as directed. Encourage trust in the therapy relationship by sharing fears about dependency, loss, and abandonment. Accomplish mood stability, having slower reaction with anger, less expansive, and being more socially appropriate and sensitive. Encourage expression of grief, fear, and anger regarding real or imagined losses in life. Interventions: Learn ways to manage depressive symptoms accordingly and identify positive supports to manage life stressors and mood fluctuations. Modalities: Encourage groups, education on depression, provide CBT treatment, family meeting. DSM5/PS Stressors/Medical Prob Diagnosis' (DSM 5, Stressors, Medical): F29 Unspecified Schizophrenia Spectrum and other psychotic Disorders, F12.20 Cannabis use d/o Current GAF: 15 Treatment Team - Responsibilities of members of the treatment team include: - Medication Management- MD or INVENTORY CONTROL CLERK - Medication Administration and Monitoring- Nurse - Group Therapy- Occupational Therapist - 1:1 Therapy,Disch Planning,family involvement-Paster Operator
[2017-01-06 17:28] VITALS: BP 127/64
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
[2017-01-06 19:50] VITALS: BP 105/58
--- NOTE | 2017-01-06 22:10 | NUR ---
PT IS VISIBLE ON UNIT, SOCIAL WITH PEERS AND STAFF. VERY PLEASANT AND COOPERATIVE. APPEARS TO BE MORE CLEAR IN THOUGHT PROCESS. REMAINS ON 1:1 FOR SAFETY. ATTENDED WRAP UP MEETING AND PARTICIPATED. NO COMPLAINTS OR SI REPORTED. PT HAS A STABLE MOOD AND EUTHYMIC AFFECT.
--- NOTE | 2017-01-07 06:09 | NUR ---
PATIENT WAS AWAKE SEVERAL TIMES DURING THE NIGHT; AT 0500 SHE WANTED TO TAKE A SHOWER, AND HAD DIFFICULTY UNDERSTANDING WHY SHE COULDN'T; SHE WAS COMPLIANT WITH STAFF EDUCATION HOWEVER.
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
[2017-01-07 07:58] VITALS: BP 131/75
[2017-01-07 12:21] VITALS: BP 99/59
--- NOTE | 2017-01-07 12:21 | CP SOUTH PROGRESS NOTE PSYCH ---
Psych (Inpt) Progress Note Progress Note Progress Note: I discussed this patient's progress to date, current mental status, treatment process in the context of the treatment plan, and discharge planning with staff/ team in the daily morning inpatient team meeting. I also met with the patient myself in individual session. SUBJECTIVE: "I like Zyprexa better than Seroquel. My thoughts are not all crazy. I'm more streamlined. I've always been scattered. I have a lot of PTSD." OBJECTIVE: Current Medications Sig/Quinn Start time Last Medication Dose Route Stop Time Status Admin Acetaminophen 1,000 MG Q4P PRN 01/02 2245 AC 01/02 PO 2317 Nicotine 2 MG Q2P PRN 01/02 2230 AC 01/02 PO 2317 Olanzapine 10 MG 0800 01/08 0800 UNVr PO Olanzapine 15 MG AT BEDTIME 01/07 220 UNVr PO Olanzapine 10 MG 0800,01/06 0800 DC 01/07 PO 0809 Olanzapine 5 MG Q8P PRN 01/04 1400 AC 01/07 PO 1109 Vital Signs Date Time Temp Pulse Resp B/P Pulse O2 O2 Flow FiO2 Ox Delivery Rate 01/07 0758 97.4 89 131/75 01/06 1950 98.4 69 105/58 01/06 1728 59 127/64 01/06 1244 63 126/89 ASSESSMENT: Patient presents this morning as calm, cooperative, logical and pleasant. Describes a long history of PTSD. 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 Has been clean from drugs, with the exception of marijuana, since 2007. Reports tolerating Zyprexa well, to good effect. We discussed adding a mood stabilizer, however she declined at this time. She has been taking 1 or 2 doses daily of PRN Zyprexa. She has agreed to increase bedtime dose of Zyprexa, hopefully in order that she will not need the prn doses. Depression:0/10; Anxiety:5/10 (with 10 the worst.) Patient states that she feels less anxious than usual. Denies suicidal ideation, homicidal ideation, auditory hallucinations, visual hallucinations, paranoid ideation. Patient states that she had been feeling very paranoid on her arrival to the hospital. States that she did not know if the scene in the emergency room was real, or staged for her benefit. She denies paranoid thoughts at this time. I was paranoid, but not anymore." Reports sleeping well at night. States that her appetite is very good. We discussed risks and side effects of Zyprexa, including possible weight gain. Patient verbalized understanding, and stated that she is willing to put on some weight if needed, and could exercise and eat healthfully. Speech is well articulated, goal-directed, average in rate, volume and tone. The patient understands the risks/benefits/side effects of the medication and is agreeable to continue taking them. PLAN: Increase Zyprexa to 15 mg at bedtime. We spoke about discharge planning, patient states that she is not interested in IOP. She is also not interested in discontinuing use of marijuana. States that she would like a 1:1 therapist, who could focus on trauma. Continue with current management as patient is improving. Continue to provide support and encouragement.
--- NOTE | 2017-01-07 13:14 | NUR ---
DR. MCCORD WAS CONTACTED RE: PT'S C/O CHRONIC BILATERAL RIB PAIN, IN NO ACUTE DISTRESS, PER PT HAS BEEN GOING ON FOR "MONTHS", CHEST X-RAY ORDERED, PT AND STAFF AWARE.
[2017-01-07 15:57] VITALS: BP 119/61
--- NOTE | 2017-01-07 16:28 | RADIOLOGY REPORT ---
EXAMINATION: XR CHEST CLINICAL INFORMATION: 31-year-old female presented with chest pain, tenderness. COMPARISON: None TECHNIQUE: 2 views of the chest were obtained. FINDINGS: Both lung price are symmetrically expanded and appear clear. The cardiomediastinal silhouette is within normal limits. There is no pleural effusion present. There is no displaced rib fracture and/or hemopneumothorax identified. However, subtle focal prominence is noted at mid lateral aspect of the right hemithorax which may represent a healing rib fracture, appears asymmetric as compared to the normal left side, seen only on the frontal projection. Dedicated rib series may be considered for further clarification if clinically appropriate. IMPRESSION: 1. No acute cardiopulmonary disease. 2. Specifically, no radiographic evidence of any displaced rib fracture and/or hemopneumothorax identified. 3. Subtle focal prominence is noted at the mid lateral aspect of the right hemithorax, may represent a healing rib fracture. Follow up dedicated right hemithoracic rib series may be considered if clinically appropriate, for further clarification.
--- NOTE | 2017-01-07 18:20 | SOCIAL WORKER PROG NOTE PSYCH ---
Social Work Progress Note Progress Note Patient continues to present more organized, logical, less labile and with less loose associations. Patient presented less irritable today and spoke less about her anger towards her today. She did express a realization that she thinks she may need to stay temporarily at her aunts house in [place], [place]. She identifies her aunt as a positive support who patient has stayed with in the past during marital issues. Patient appears less paranoid today and was less defensive with this global technical writer. She smiled more frequently during our meeting and appeared more relax. Patient reported today that does not wish to attend IOP post discharge as she has attended IOP in the past and feels she gets taken advantage of by other group members and has a hard time saying no to people. She expressed her desire for one on one therapy and I informed her I would refer her to [facility] and she can complete an evaluation there and they will let her know their recommendation for further treatment.
[2017-01-07 19:34] VITALS: BP 126/60
--- NOTE | 2017-01-07 21:37 | NUR ---
PT IS OUT IN COMMUNITY INTERACING WELL WITH STAFF AND PEERS. PT IS COMPLIANT AND COOPERATIVE. PT REMAINS ON 1:1 FOR BEHAVIOR ISSUES, NONE NOTED ON THIS SHIFT. PT IS ATTENDING GROUPS. PT COMMUNICATION IS CLEAR AND PT IS ABLE TO EXPRESS WISHES. PT MOOD IS STABLE WITH A CONSTRICTED AFFECT. PT DENIES SI THOUGHTS.
--- NOTE | 2017-01-08 00:49 | NUR ---
PATIENT SLEEPING QUIETLY WITH NO COMPLAINTS OFFERED.
--- NOTE | 2017-01-08 02:06 | NUR ---
OOB X1 TO BATHROOM, SITTER WITH PATIENT, NO COMPLAINTS OFFERED.
--- NOTE | 2017-01-08 04:18 | NUR ---
SLEEPING QUIETLY, NO COMPLAINTS OFFERED , SITTER MAINTAINED.
--- NOTE | 2017-01-08 04:51 | NUR ---
SLEPT WELL NO COMPLAINTS OFFERED.
--- NOTE | 2017-01-08 06:20 | NUR ---
SLEPT WELL,1:1 MAINTAINED
[2017-01-08 07:38] VITALS: BP 100/67
[2017-01-08 12:16] VITALS: BP 125/59
--- NOTE | 2017-01-08 13:30 | CP SOUTH PROGRESS NOTE PSYCH ---
Psych (Inpt) Progress Note Progress Note Progress Note: I discussed this patient's progress to date, current mental status, treatment process in the context of the treatment plan, and discharge planning with staff/ team in the daily morning inpatient team meeting. I also met with the patient myself in individual session. SUBJECTIVE: "I have justified anger that I don't know what to do with." OBJECTIVE: Current Medications Sig/Quinn Start time Last Medication Dose Route Stop Time Status Admin Acetaminophen 1,000 MG Q4P PRN 01/02 2245 AC 01/02 PO 2317 Gabapentin 300 MG 0800,1300,1700,2200 01/08 1330 UNVr PO Nicotine 2 MG Q2P PRN 01/02 2230 AC 01/02 PO 2317 Olanzapine 10 MG 0800 01/08 0800 AC 01/08 PO 0742 Olanzapine 15 MG AT BEDTIME 01/07 2200 AC 01/07 PO 2136 Olanzapine 5 MG Q8P PRN 01/04 1400 AC 01/08 PO 1205 Vital Signs Date Time Temp Pulse Resp B/P Pulse O2 O2 Flow FiO2 Ox Delivery Rate 01/08 1216 66 125/59 01/08 0738 98.3 70 100/67 01/07 1934 98.6 71 126/60 01/07 1557 65 119/61 01/07 1411 Room Air 01/07 1409 Room Air ASSESSMENT: Patient presents as tearful today. She applied for [employer] insurance today, but may not be approved because her 's income is too high. She is afraid of getting hospital bills. She reports tolerating medications well, Zyprexa is helping her "streamline" her thoughts. States her experience of racing thoughts is improving. Slept well last night. Good appetite. Today patient spoke about her mother, father and other family members, and a long family history of various mental health disorders and difficulties. States that she has a lot of resentments and anger towards members of her family, including her mother and . Patient agreed to try gabapentin for anxiety. Patient states that she is not feeling depressed, just upset. Reports that she has experienced depression in the past, and does not think that this is depression. She does however state that she feels very anxious. Denies suicidal ideation, homicidal ideation, auditory hallucinations, visual hallucinations, paranoid ideation. Patient states also believes that she will not kill herself. Speech is well articulated, goal-directed, average in rate, volume and tone. Somewhat hyperverbal and at times tangential. Anxious mood. Cooperative. Alert and oriented 3. Labile and tearful during our conversation today. 1:1 sitter continues for patient safety. The patient understands the risks/benefits/side effects of the medication and is agreeable to continue taking them. PLAN: Gabapentin 300 mg 4 times daily for anxiety Continue with other current management as patient is improving. Continue to provide support and encouragement.
--- NOTE | 2017-01-08 14:29 | NUR ---
PT VISIBLE IN THE [place] TODAY. HER GOAL WAS TO GET IN TOUCH WITH FAMILY TO FACILIATE HER DISCHARGE. SHE HAS BEEN GOING TO GROUPS, AND ACTIVELY PARTICIPATING. SHE HAS BEEN INTERACTING WITH BOTH PEERS AND STAFF ALIKE, AND ORIENTED X3 ON THE UNIT. SHE REMAINS ON 1 TO 1, BUT HAS BEEN PLEASANT AND COOPERATIVE. SHE DENIES THOUGHTS TO HURT HERSELF WHEN ASKED.
--- NOTE | 2017-01-08 14:30 | SOCIAL WORKER PROG NOTE PSYCH ---
Social Work Progress Note Progress Note Patient continues to show improvement in her thought process and paranoia. Patient called [employer] insurance today in attempt to activate [employer] insurance. Patient was denied insurance due to her husbands income being too high for eligibility. Patient understood although was upset to hear this which made her anxious and volatile. Patients husbands insurance plan is active effective . Patient plans to attend [facility] with and will have active insurance for aftercare. Patient tentatively is planning to d/c Wednesday with IOP intake scheduled for 12:45pm.
[2017-01-08 15:49] VITALS: BP 125/63
[2017-01-08 19:48] VITALS: BP 122/68
--- NOTE | 2017-01-08 21:52 | NUR ---
sitter maintained as ordered. No probelms noted.
--- NOTE | 2017-01-08 21:52 | NUR ---
PT IS CALM, COOPERATIVE WITH STAFF AND PEERS, AND COMPLIANT WITH UNIT RULES. PT IS OFTEN IN [place], INTERACTING WELL WITH OTHERS. APPEARING DELUSIONAL AT TIMES, THROUGH HYPER-JEWISH THOUGHT PATTERNS, AND STRANGE IDEAS SPOKEN ABOUT ON OCCASSION. MOOD IS STABLE, AFFECT APPEARS SLIGHTLY BRIGHT TO FULL RANGE, COMMUNICATION IS ORGANIZED AND APPEARS NORMAL IN ALL RESPECTS, AND APPETITE IS NORMAL. PT DENIES SI AT THIS TIME.
--- NOTE | 2017-01-08 21:54 | NUR ---
Continous monitoring 1:1, no safety issues noted.
--- NOTE | 2017-01-09 01:59 | NUR ---
OOBX1 TO BATHROOM SITTER WITH PT. ,NO COMPLAINTS OFFERED, RETURNED TO BED.
--- NOTE | 2017-01-09 03:59 | NUR ---
SLEEPING QUIETLY, SITTER MAINTAINED.
--- NOTE | 2017-01-09 05:49 | NUR ---
1:1 MAINTAINED, SLEPT WELL
--- NOTE | 2017-01-09 05:54 | NUR ---
nO COMPLAINTS SLEPT WELL, SITTER MAINTAINED
[2017-01-09 07:48] VITALS: BP 111/50
[2017-01-09 12:07] VITALS: BP 97/71
--- NOTE | 2017-01-09 12:58 | CP SOUTH PROGRESS NOTE PSYCH ---
Psych (Inpt) Progress Note Progress Note Include the following elements, when applicable: Involvement in the active treatment of the patient with behavioral observations of the patient and the patient's response to the treatment. Review of the ongoing treatment process in the context of the treatment plan. Indication of how multi-disciplinary staff members are carrying out the treatment plan. Plans for future interventions and recommendations for revision of the treatment plan. Liaison with other physicians/providers. Progress Note: Pt notes that slept "wonderful" overnight. She feels that she is getting back to "my real personality." Optimistic about addition of gabapentin for ?anxiety as feels that she is anxious a great deal and that is can be "really angry and irritable sometimes." She inquired about results of xray. + healing rib fracture. Denies SI or HI. Feeling much better overall. Current Medications Sig/Quinn Start time Last Medication Dose Route Stop Time Status Admin Acetaminophen 1,000 MG Q4P PRN 01/02 2245 AC 01/08 PO 2121 Gabapentin 300 MG 0800,1300,1700,2200 01/08 1330 AC 01/09 PO 1221 Nicotine 2 MG Q2P PRN 01/02 2230 AC 01/02 PO 2317 Olanzapine 10 MG 0800 01/08 0800 AC 01/09 PO 0804 Olanzapine 15 MG AT BEDTIME 01/07 2200 AC 01/08 PO 2120 Olanzapine 5 MG Q8P PRN 01/04 1400 AC 01/08 PO 1205 Vital Signs Date Time Temp Pulse Resp B/P Pulse O2 O2 Flow FiO2 Ox Delivery Rate 01/09 1207 67 97/71 01/09 0748 98.1 79 111/50 01/08 1948 99.2 83 122/68 01/08 1549 61 125/63 MSE Appears as stated age. Cooperative behavior, good, appropriate eye contact. Nl speech rate and prosody. + psychomotor agitation. Mood better Affect slightly irritable, liable. Linear and goal directed thought process. Denies SI or HI. Does not appear to be responding to internal stimuli. Denies AVHs, paranoia, or delusions. I/J: limited A/P: Pt with unspecified mood and psychotic disorder c/b chronic mj use now with improved mood and thought process though slightly labile. - Continue current medication regimen - Recently started on gabapentin for ?anxiety, will assess for response - CXR + healing fracture, will monitor for pain
--- NOTE | 2017-01-09 14:28 | NUR ---
Jessie remains on 1:1. Denies any SH/HI/SI. Complaint with unit norms. Jessie spoke of wanting to meditate more during group. Complaint with medications. Visible on the unit and interactive with peers.
[2017-01-09 16:00] VITALS: BP 123/58
[2017-01-09 19:33] VITALS: BP 123/57
--- NOTE | 2017-01-09 22:23 | NUR ---
PT CONTINUES ON 1:1. PT IS MORE ORGANIZED, NO BIZARRE BEHAVIORS EXHIBITED. PT WAS VISITED BY A FRIEND ON EVENINGS- THE VISIT APPEARED TO GO WELL.
--- NOTE | 2017-01-10 06:29 | NUR ---
PT ON 1:1 STILL. PT STILL SOMEWHAT LABILE AND DISORGANIZED. PT UP EARLY, SHOWERED AT 0600.
[2017-01-10 07:55] VITALS: BP 107/56
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
[2017-01-10 12:14] VITALS: BP 104/58
--- NOTE | 2017-01-10 14:04 | NUR ---
has out in community interacting with peers and staff. mood is stable, full range of affect. denied thoughts of self harm when asked. sitter was discontinued.
[2017-01-10 16:03] VITALS: BP 121/61
[2017-01-10 20:08] VITALS: BP 128/68
--- NOTE | 2017-01-10 22:21 | NUR ---
PT IS PRESENT WITHIN THE COMMUNITY AND INTERACING WITH PEERS/STAFF. CURRENTLY OFF ONE TO ONE. PT IS APPROPRIATE AND COMPLIANT/COOPERATIVE. STABLE WITH FULL MARKO OF AFFECT. PT DID NOT REPORT HAVING ANY "ANGER OUTBURSTS" TODAY. VISITED WITH HER AND DAUGHTER WHOM SHE INVITED TO VISIT. WANTS HER TO FIND "SOMEONE TO LOVE HIM THE WAY HE DESERVES". PT IS FRUSTRATED WITH HER . OTHERWISE PT REPORTS EVERYTHING IS GOING WELL. VS ARE STABLE AND DENIES ANY SI/HI TO THIS MHW.
--- NOTE | 2017-01-11 07:32 | NUR ---
PATIENT SLEPT ALL NIGHT.
[2017-01-11 07:38] VITALS: BP 114/54
[2017-01-11] MEDS ORDERED: NICORELIEF2 MG PO (10:33)
--- NOTE | 2017-01-11 11:02 | CP SOUTH PROGRESS NOTE PSYCH ---
Psych (Inpt) Progress Note Progress Note Progress Note: I discussed this patient's progress to date, current mental status, treatment process in the context of the treatment plan, and discharge planning with staff/ team in the daily morning inpatient team meeting. I also met with the patient myself in individual session. SUBJECTIVE: "I enjoy being here." OBJECTIVE: Current Medications Sig/Quinn Start time Last Medication Dose Route Stop Time Status Admin Acetaminophen 1,000 MG Q4P PRN 01/02 2245 AC 01/11 PO 0751 Gabapentin 300 MG 0800,1300,1700,2200 01/08 1330 AC 01/11 PO 0751 Olanzapine 20 MG AT BEDTIME 01/10 2200 AC 01/10 PO 2138 Olanzapine 10 MG 0800 01/08 0800 AC 01/11 PO 0751 Olanzapine 15 MG AT BEDTIME 01/07 2200 DC 01/09 PO 2114 Olanzapine 5 MG Q8P PRN 01/04 1400 AC 01/10 PO 1609 Vital Signs Date Time Temp Pulse Resp B/P Pulse O2 O2 Flow FiO2 Ox Delivery Rate 01/11 738 97.0 73 114/54 01/11 2008 98.4 94 128/68 01/10 1603 78 121/61 01/10 1214 68 104/58 ASSESSMENT: Patient reports that she is feeling well, has felt that her time here has been helpful. States that she is tolerating her medications well, without complaint. States she feels safe and ready for discharge. Depression:0/10; Anxiety:5/10 (with 10 the worst.) Patient reports "I'm always anxious, some of it is impatience." Denies suicidal ideation, homicidal ideation, auditory hallucinations, visual hallucinations, paranoid ideation. Patient states and also believes that she will not kill herself. Speech is well articulated, goal-directed, average in rate, volume and tone. This morning the patient is calm, cooperative, pleasant and logical. Alert and oriented 3. She reports that her pediatric speech language pathologist and his came to visit her this weekend. She admitted her marijuana use to her them. She also pledged to them that she would try to stop smoking marijuana. They told her that they would help her find a therapist after IOP, and idea which she is very comfortable with. The patient understands the risks/benefits/side effects of the medication and is agreeable to continue taking them. PLAN: Anticipate discharge this afternoon, to IOP intake. Continue with current management as patient is improving. Continue to provide support and encouragement.
--- NOTE | 2017-01-11 11:08 | SOCIAL WORKER PROG NOTE PSYCH ---
Social Work Progress Note Progress Note Patient to discharge home today. Patient denies SI/HI/AH/VH at present and presents clear, organized and logical today. Patient agreed to start IOP at and has intake today at 12:45pm. Patient plans to return home to reside with her and her daughter in a safe environment. Patient encouraged to refrain from any marijuana use going forward. Patient plans to return to volunteering in the community and anabaptist activities.
--- NOTE | 2017-01-11 11:09 | NUR ---
PT IS SCHEDULED FOR D/C TODAY [place] [facility] [place]. SHE REPORTS AND DEMONSTRATES IMPROVEMENT IN HER MOOD AND ABILITY TO FUNCTION. SHE REPORTS HER THOUGHTS ARE CLEAR AND SHE IS CALM AND ORGANIZED. SHE DENIES ANY THOUGHTS OF SUICIDE OR SELF HARM. SHE VERBALIZES A GOOD UNDERSTANDING OF HER MED REGIME AND TREATMENT PLAN. PT AGREES TO FOLLOW UP WITH [facility] AND HAS HER INTAKE TODAY. SHE IS GIVEN EDUCATION ON MANAGING HER MOOD D/O AND ON SUICIDE PREVENTION
--- NOTE | 2017-01-11 11:12 | DISCHARGE SUMMARY REPORT-PSYCH ---
Visit Information Visit Dates/Diagnosis' Admission Date: 01/02/17 Discharge Date: 01/11/17 Reason for Admission: Pt is a 31yo female who was brought in to the ED on a PEER after she went missing from her home early this morning. Pt had showed up at a friend's home at 5am in the morning speaking nonsensically, stating that she needed help packing all her things into the car so that she can give them away. She presented with labile mood swings and was noted to be hyperverbal, speaking in a disorganized manner about life and . 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 Psy Discharge Secondary Diag: Cannabis use d/o. Hospital Course Significant Lab Findings: Lab Free T4 1.53 ng/dL 01/02/17 1111 TSH 0.865 uIU/mL 01/02/17 1111 Thyroxine (T4) 10.4 ug/dL 01/02/17 1111 Total Beta HCG NEGATIVE 01/02/17 1111 Course Complications: None Consultations: Patient was seen for admission history and physical by Mona Lamas MD. Please refer to her note for additional information. Allergies: Coded Allergies: amoxicillin (HIVES 01/03/17) Hospital Course/TX Response: The patient was monitored on the unit for safety, and disorganized thoughts. She participated in multimodal treatments on the unit. She was medicated with Zyprexa for stable moods and clear thoughts, Neurontin for discomfort and anxiety. She tolerated these medications well, to good effect. Today, the day of discharge, she reports that she is feeling well, has felt that her time here has been helpful. States that she is tolerating her medications well, without complaint. States she feels safe and ready for discharge. Depression:0/10; Anxiety:5/10 (with 10 the worst.) Patient reports "I'm always anxious, some of it is impatience." Denies suicidal ideation, homicidal ideation, auditory hallucinations, visual hallucinations, paranoid ideation. Patient states and also believes that she will not kill herself. Speech is well articulated, goal-directed, average in rate, volume and tone. This morning the patient is calm, cooperative, pleasant and logical. Alert and oriented 3. She reports that her industrial property appraiser and his came to visit her this weekend. They told her that they would help her find a therapist after IOP, an idea with which she is very comfortable. The patient understands the risks/benefits/side effects of the medication and is agreeable to continue taking them. Patient reports tolerating her medications well, to good effect. States she feels safe and ready for discharge. Discharge HBIPS - Tobacco Use Treatment Offered Post DC Medications Offered: NA-No Tob Use >30 days Post DC Tobacco Treatment Plan: NA-No Tobacco use >30days - EtOH/Drug Use D/O Treatment Offered Post DC Medications Offered: NA-No EtOH/Drug Use D/O Post DC EtOH/SubAbuse TX Plan: NA-No EtOH/Drug Use D/O Metabolic Screening - Screen if on a Neuroleptic Medication - Metabolic screening should include: - Blood Pressure, BMI, Glucose or Hgb A1c, & a - Lipid profile from within the past 365 days. Metabolic Screening () Not Applicable, patient not on a neuroleptic. OR ([x]) Patient on a neuroleptic(s) . Enter below results for Glucose or Hemoglobin A1C, and lipid panel if obtained during the last 365 days. BMI: 19.700 Blood Pressure: 114/54 Laboratory Results (If applicable): Lab Cholesterol 184 MG/DL 01/10/17 0655 Cholesterol/HDL Ratio 4 % 01/10/17 0655 HDL Cholesterol 44 mg/dL 01/10/17 0655 Hemoglobin A1c 5.5 % 01/10/17 0655 LDL Cholesterol, Calc 109 mg/dL 01/10/17 0655 Triglycerides 158 mg/dL H 01/10/17 0655 Discharge Instructions General Discharge Information Discharge Medications: Discharge Medications- (Dose, route, freq, indication): START taking these NEW Home Medications: Gabapentin Dose: ORAL, Qty: 56 Called in to (Gabapentin) 300 MG 300 Milligram 0800,1300,1700,2200 for Refills: 0 Pharm 1 CAPSULE ANXIETY Last Taken:01/11/17 Time:0800 Olanzapine Dose: ORAL, DAILY @8 AM for Qty: 14 Called in to (Olanzapine) 10 MG 10 Milligram CLEAR THOUGHTS Refills: 0 Pharm 1 TABLET Last Taken:01/11/17 Time:0800 Olanzapine Dose: ORAL, AT BEDTIME for Qty: 28 Called in to (Olanzapine) 10 MG 20 Milligram CLEAR THOUGHTS Refills: 0 Pharm 1 TABLET Last Taken:01/10/17 Time:2129 Nicotine Dose: ORAL, EVERY 2 HOURS Qty: 30 Called in to (Nicorelief) 2 MG 2 Milligram NEEDED as needed for Refills: 0 Pharm 1 GUM SMOKING CESSATION 1: [id number], [address] [facility] [address] [facility] Preferred [facility] Address: [address] [id number] Multiple Neuroleptics: ([x]) Not Applicable OR Document below three failed attempts at monotherapy, or a plan to taper to monotherapy, or augmentation of Clozapine. () Patient's Diet: Regular Patient's Activity: No restrictions DC Disposition: She is returning home, where she lives with her . Recommendations: Take medications as directed. Follow-up at [facility]. Maintain sobriety Referred To: [facility] Service Date: 01/11/17 [address] [id number] Notes: [facility] intake [address] [id number] 01/11/17 12:45pm Copies To: [facility]
[2017-01-11] MEDS ORDERED: GABAPENTIN300 M2 PO (11:40)
[2017-01-11] MEDS ORDERED: OLANZAPINE10 M1 PO ×2 (11:41)
--- NOTE | 2017-01-11 13:39 | NUR ---
[place] [facility] [place] [facility]. MOOD IS STABLE, FULL RANGE OF AFFECT. DEIED THOUGHTS OF SELF HARM WHEN ASKED. GIVEN EDUCATION ONSUICIDE PREVENTION AND DEPRESSION
== END 2017-01-11 12:45 | DRG 750 ==
LOC: ERH 10:29 → ERHI 15:52 → CP SOUTH 15:52
PROVIDERS: Emergency Medicine; Student in an Organized Health Care Education/Training Program; ADMIT Psychiatry & Neurology Addiction Medicine
DX: F20.9 Schizophrenia, unspecified (principal); F12.10 Cannabis abuse, uncomplicated
CPT/HCPCS: 36415; 80307; 81001; G0480